=== PATIENT | female | born 1955 | race Caucasian/White ===

== ENCOUNTER 2022-03-03 09:34 | Outpatient (CLI) | payer BC, SELFPAY ==
[2022-03-03 14:16] LABS: Albumin* 4.6 g/dL (3.3-5.0); Chloride* 106 mmol/L (96-114); Sodium* 140 mmol/L (135-149)
[2022-03-03 14:17] LABS: Potassium* 4.3 mmol/L (3.6-5.1)
[2022-03-03 14:18] LABS: Cholesterol* 172 mg/dL (90-199)
[2022-03-03 14:19] LABS: Alanine Aminotransferase* 23 U/L (4-35); Alkaline Phosphatase* 91 U/L (40-150); Aspartate Amino Transferase* 27 U/L (12-35); Blood Urea Nitrogen* 26 mg/dL (7-30); Calcium* 9.5 mg/dL (8.4-10.6); Carbon Dioxide* 29 mmol/L (20-32); Creatinine* 0.9 mg/dL (0.5-1.5); Estimated Glomerular Filt Rate 71 ml/min; Triglycerides* 148 mg/dL (40-149)
[2022-03-03 14:20] LABS: HDL Cholesterol* 56 mg/dL (>=50); LDL Cholesterol Calculated 86 mg/dL (<100)
[2022-03-03 14:35] LABS: Glucose* 99 mg/dL (60-115)
== END 2022-03-03 09:35 | disposition home or self-care (01) ==
PROVIDERS: PCP Physician Assistant Medical; Visit Provider Physician Assistant Medical
DX: Z01.419 Encounter for gynecological examination (general) (routine) without abnormal findings (principal); E78.5 Hyperlipidemia, unspecified; I10 Essential (primary) hypertension
CPT/HCPCS: 80053; 80061

== ENCOUNTER 2022-07-08 12:43 | Outpatient (CLI) | payer MEDICARE, SELFPAY ==
--- NOTE | 2022-07-08 13:00 | CRLHL7_ITS ---
For Patients: As a result of the Century Cures Act, medical imaging exams and procedure reports are released immediately into your electronic medical record. You may view this report before your referring provider. If you have questions, please contact your health care provider. BILATERAL SCREENING MAMMOGRAM WITH COMPUTER-AIDED DETECTION AND TOMOSYNTHESIS TECHNIQUE: CC and MLO views were obtained. These mammographic images have been obtained using full-field digital technique. These mammographic images were interpreted with the benefit of computer-aided detection. Breast Tomosynthesis was used in this interpretation. COMPARISON FILM: 11/14/20, 09/17/19, 03/06/18. FINDINGS: There are scattered areas of fibroglandular density IMPRESSION: There is no radiographic evidence for malignancy. ASSESSMENT: BI-RADS Category 1: Negative RECOMMENDATION: Routine screening mammogram in 1 year. A lay language report of this examination will be provided to the patient. Jeremy Andrade M.D. Diagnostic Radiologist [email or web address] ISABELLA/Dictated by: Jeremy Andrade MD @ 07/09/2022 8:39:00 AM (Electronically Signed)
--- NOTE | 2022-07-08 13:30 | CRLHL7_ITS ---
For Patients: As a result of the Century Cures Act, medical imaging exams and procedure reports are released immediately into your electronic medical record. You may view this report before your referring provider. If you have questions, please contact your health care provider. DXA BONE MINERAL DENSITY STUDY Reason for exam: Bone density loss. Current height (in): 67. Weight (lb): 218. Menopause age: 42. Ethnicity: White. 1. Have you had a previous hip or vertebral fracture? No. 2. Have you had any fractures during your adult life which did not result from significant trauma (e.g., auto accident)? No. 3. Did either of your parents have a hip fracture? No. 4. Do you smoke? No. 5. Have you ever taken Glucocorticoids? No. 6. Do you have rheumatoid arthritis? No. 7. Do you have secondary osteoporosis? No. 8. Do you drink 3 or more alcoholic drinks per day? No. 9. Are you being treated for osteoporosis? No. 10. Have you ever taken any of the following medications: Actonel, Evista, Fosamax, Miacalcin, Reclast, Boniva, Forteo, HRT (i.e., estrogen/hormone therapy), Protelos, Prolia, Vitamin D, Calcium, other ??? please specify. ANSWER: No. 11. Do you have any of the following medical conditions: Anorexia or bulimia, asthma or emphysema, end stage renal disease, hyperparathyroidism, any seizure disorders, cancer, inflammatory bowel diseases, hysterectomy, other ??? please specify. ANSWER: No. 12. What was your maximum height (inches)? 68. 13. Do you perform weight bearing exercise regularly? No. 14. Do you regularly consume dairy products? Yes. 15. Do you drink caffeinated beverages? Yes. If female: 16. At what age did your period start? 18. 17. Are you premenopausal? No. 18. How many full-term pregnancies have you had? 2. 19. Have you ever missed your period for more than 6 months in a row (not including or menopause)? No. TECHNIQUE: Bone mineral density study was performed using the [place]. FINDINGS: The results of the study expressed as bone mineral density (BMD) are as follows: Lumbar spine L1 to L43: BMD: 1.165 g/cm2. T-score: 1.3. Z-score: 3.1 Neck Left: BMD: 0.900 g/cm2. T-score: 0.5. Z-score: 2.0 Right: BMD: 0.941 g/cm2. T-score: 0.8. Z-score: 2.4 Total Left: BMD: 1.024 g/cm2. T-score: 0.7. Z-score: 1.9 Right: BMD: 1.105 g/cm2. T-score: 1.3. Z-score: 2.6 IMPRESSION: Normal bone density. Jeremy Andrade M.D. Diagnostic Radiologist [email or web address] DSM/rocío jjayy/Dictated by: Jeremy Andrade MD @ 07/09/2022 12:19:00 PM (Electronically Signed)
== END 2022-07-08 12:44 | disposition home or self-care (01) ==
PROVIDERS: PCP Physician Assistant Medical; Visit Provider Physician Assistant Medical
DX: Z12.31 Encounter for screening mammogram for malignant neoplasm of breast (principal); Z13.820 Encounter for screening for osteoporosis
CPT/HCPCS: 77063; 77067; 77080

== ENCOUNTER 2023-03-17 10:10 | Outpatient (CLI) | payer MEDICARE, SELFPAY | END 2023-03-17 10:11 | disposition home or self-care (01) | LOC: NFLDREF 03-18 12:28 | PROVIDERS: PCP Physician Assistant Medical; Referring Provider Physician Assistant Medical; Visit Provider Physician Assistant Medical | DX: Z00.00 Encounter for general adult medical examination without abnormal findings (principal); E78.5 Hyperlipidemia, unspecified; I10 Essential (primary) hypertension; M25.562 Pain in left knee; R73.03 Prediabetes | CPT/HCPCS: 80053; 80061 ==

== ENCOUNTER 2023-05-24 13:30 | Outpatient (RCR) | payer MEDICARE, SELFPAY ==
--- NOTE | 2023-03-22 15:53 | PT.OPE ---
[facility] PT [facility] Outpatient Eval Start: 03/21/23 16:45 Freq: Status: Active Protocol: Document 03/22/23 14:23 LSL (Rec: 03/22/23 15:48 LSL [id number]) E-signed By Jazzy Conklin PT Physical Therapy Outpatient Evaluation Insurance Information Insurance Name Medicare B,Blue [employer] Medical Diagnosis L knee pain Treating Diagnosis pain, impaired ROM Referring MD Johnson Subjective Subjective Pt. reports sporadic feeling like her knee will give out and the next step it will be fine. Additionally she is experiencing a more constant ache in her inner L thigh that makes it difficult to fall asleep. If I get up to go to the bathroom it can be hard to fall back asleep. Pt. is a side sleeper and adding a pillow between her legs has not helped. Pt. has a couple of trips coming up in the near future and wants to make sure she doesn't have any problems while visiting different countries. Unable to identify anything to help or that is a trigger. HTN treated with medication. Pt's goal is to be able to walk a couple miles and do water aerobics. Pain Comments 05/14 Date of Last Physician Visit 03/17/23 Current Work Status Retired Precautions Weight Bearing Status Full Weight Bearing Therapy Limitations/Systems Review Not Limited Objective Range of Motion AROM Lumbar flexion WNL with slight knee bend, RLF 75%, LLF 50%, extension 50%, R rotation WNL, L rotation 30% Knee L 0/17/116 R 0/10/129 PROM - limited R hip extension and abduction causes increased lateral hip and medial thigh pain Strength B knees 5/5 Hip - L glut 3+/5 with limited hip extension, all others 5/5 B Swelling MEASUREMENTS L R joint line 41 cm 43.5 cm Palpation tenderness around pes anserine and all the way up adductor bundle, lateral joint line and ITB tender Balance & Gait B SLB 14-15 seconds Other/Pertinent Objective Special - negative McMurrays Functional Test Performed & Score Functional - squat shifts to R , B lunge fair + Assessment Assessment/Impression Pt. is a 68 year old female who presents to PT with a report of L adductor pain and very intermittent knee instability. She is lacking a significant amount of R knee extension and a moderate amount of L knee extension, additionally she has lost L knee flexion range as well. Her strength is good except for L gluts. Her knee instability may be due to this lack of ROM and tightness along the adductors pulling at the pes anserine. She will benefit from treatment initially focused on restoring her hip and knee ROM and progressing to strengthening so she feels comfortable getting off the floor. Primary Functional Limitations getting off the floor, walking , sleeping Plan of Care Rehabilitation Potential Good Physical Therapy Goals SHORT TERM GOALS: (2-3 weeks) 1. Pt. to able to fall asleep without leg pain. 2. Pt. able to walk with 3 or less instances per week of knee feeling like it may give out. [facility]CI GOALS: (4-8 weeks) 1. Pt. able [place] walk on the beach with pain less than 2/10 . 2. Pt. able to get up off the ground with minimal assistance from UE. Coordination/Communication With Referral Source Treatment Plan/Direct Interventions Manual Therapy,Neuromuscular Re-ed,Self-Care/Home Management,Therapeutic Activities,Therapeutic Exercises Frequency/Duration 1x/week 3 weeks then potentially again when she returns from vacation for a total of 10 sessions Patient Will Be Discharged From Therapy Completion of LTG(s),Skills Plateau,Independent w/HEP, Independently Progressing Evaluation Billing Untimed Code Treatment Minutes 35 Complexity Low Certification Information Initial Certification Date 03/22/23 Ending Certification Date 06/17/23 Provider Signature Shows Agreement With POC & Medical Necessity Physician Signature & Date Requested Please Sign/Date Here Physician Comment/Change : Physician NPI Number #
== END 2023-09-13 13:48 | disposition home or self-care (01) ==
PROVIDERS: PCP Physician Assistant Medical; Visit Provider Physician Assistant Medical
DX: M25.562 Pain in left knee (principal); Z51.89 Encounter for other specified aftercare
CPT/HCPCS: 97110; 97140; 97161

== ENCOUNTER 2023-11-01 12:40 | Outpatient (CLI) | payer MEDICARE, SELFPAY ==
--- NOTE | 2023-11-01 13:20 | CRLHL7_ITS ---
For Patients: As a result of the Century Cures Act, medical imaging exams and procedure reports are released immediately into your electronic medical record. You may view this report before your referring provider. If you have questions, please contact your health care provider. BILATERAL SCREENING MAMMOGRAM WITH COMPUTER-AIDED DETECTION AND TOMOSYNTHESIS TECHNIQUE: CC and MLO views were obtained. These mammographic images have been obtained using full-field digital technique. These mammographic images were interpreted with the benefit of computer-aided detection. Breast Tomosynthesis was used in this interpretation. COMPARISON FILM: 07/08/22, 11/14/20, 09/17/19. FINDINGS: There are scattered areas of fibroglandular density. IMPRESSION: There is no radiographic evidence for malignancy. ASSESSMENT: BI-RADS Category 1: Negative RECOMMENDATION: Routine screening mammogram in 1 year. A lay language report of this examination will be provided to the patient. Jeremy Andrade M.D. Diagnostic Radiologist [email or web address] SP/Dictated by: Jeremy Andrade MD @ 11/03/2023 9:56:00 AM (Electronically Signed)
== END 2023-11-01 12:41 | disposition home or self-care (01) ==
LOC: MAMMO 12:41
PROVIDERS: PCP Physician Assistant Medical; Visit Provider Physician Assistant Medical
DX: Z12.31 Encounter for screening mammogram for malignant neoplasm of breast (principal)
CPT/HCPCS: 77063; 77067

== ENCOUNTER 2024-06-05 08:32 | Outpatient (CLI) | payer MEDICARE, SELFPAY ==
--- NOTE | 2024-06-12 13:30 | W.PM.SLEEP ---
Sleep Study Details Details Interpreting Provider: Verenice Date of Sleep Study: 06/05/24 Sleep Study Details: STUDY TYPE:? Home unattended ? BMI:? 35.5 ORDERING PROVIDER:Mj Caldera INDICATION:? Concern about sleep apnea ? SLEEP SUMMARY:? 529 minutes monitored RESPIRATORY SUMMARY:? AHI 17.8 per rule 1A, 10.4 per CMS guidelines Low oxygen 82 9.6% of study oxygen less than 90% Snoring 97% PERIODIC LIMB MOVEMENTS OF SLEEP:? Not recorded CARDIAC:? Range 45-100, mean 53.3 beats per minute IMPRESSION:? Mild obstructive sleep apnea per CMS guideline, moderate apnea per rule 1A with significant desaturations nearly 10% of the study oxygen was less than 90%. RECOMMENDATION: AutoSet CPAP pressure 4-17. Dental appliance is also a potential treatment option.
== END 2024-06-05 08:33 | disposition home or self-care (01) ==
PROVIDERS: PCP Physician Assistant Medical; Visit Provider Otolaryngology
DX: G47.33 Obstructive sleep apnea (adult) (pediatric) (principal)
CPT/HCPCS: 95806

== ENCOUNTER 2024-06-07 09:18 | Outpatient (CLI) | payer MEDICARE, SELFPAY | END 2024-06-07 09:19 | disposition home or self-care (01) | LOC: NFLDREF 06-08 10:27 | PROVIDERS: PCP Physician Assistant Medical; Visit Provider Physician Assistant Medical | DX: I10 Essential (primary) hypertension (principal); E78.5 Hyperlipidemia, unspecified; E66.9 Obesity, unspecified; G25.81 Restless legs syndrome; R73.01 Impaired fasting glucose; R00.1 Bradycardia, unspecified | CPT/HCPCS: 80053; 80061; 82728 ==

== ENCOUNTER 2024-07-02 09:27 | Outpatient (CLI) | payer MEDICARE, SELFPAY ==
[2024-07-02 13:41] VITALS: BMI 34.7
== END 2024-07-02 09:28 | disposition home or self-care (01) ==
LOC: NUTRITION 09:28
PROVIDERS: PCP Physician Assistant Medical; Visit Provider Dietitian, Registered
DX: E66.9 Obesity, unspecified (principal); Z68.32 Body mass index [BMI] 32.0-32.9, adult; Z71.3 Dietary counseling and surveillance
CPT/HCPCS: G0463

== ENCOUNTER 2024-07-11 10:26 | Outpatient (CLI) | payer MEDICARE, SELFPAY ==
[2024-07-11 08:46] VITALS: BMI 34.6
== END 2024-07-11 10:27 | disposition home or self-care (01) ==
LOC: NUTRITION 10:26
PROVIDERS: PCP Physician Assistant Medical; Visit Provider Dietitian, Registered
DX: E66.9 Obesity, unspecified (principal); Z68.32 Body mass index [BMI] 32.0-32.9, adult; Z71.3 Dietary counseling and surveillance
CPT/HCPCS: G0463

== ENCOUNTER 2024-07-23 07:44 | Outpatient (CLI) | payer MEDICARE, SELFPAY ==
[2024-07-23 08:28] VITALS: BMI 34.4
== END 2024-07-23 07:45 | disposition home or self-care (01) ==
LOC: NUTRITION 07:44
PROVIDERS: PCP Physician Assistant Medical; Visit Provider Dietitian, Registered
DX: E66.9 Obesity, unspecified (principal); Z68.34 Body mass index [BMI] 34.0-34.9, adult; Z71.3 Dietary counseling and surveillance
CPT/HCPCS: G0463

== ENCOUNTER 2024-08-01 09:07 | Outpatient (CLI) | payer MEDICARE, SELFPAY ==
[2024-08-01 13:33] VITALS: BMI 34.5
== END 2024-08-01 09:08 | disposition home or self-care (01) ==
LOC: NUTRITION 09:08
PROVIDERS: PCP Physician Assistant Medical; Visit Provider Dietitian, Registered
DX: E66.9 Obesity, unspecified (principal); Z68.34 Body mass index [BMI] 34.0-34.9, adult; Z71.3 Dietary counseling and surveillance
CPT/HCPCS: G0463

== ENCOUNTER 2024-08-15 12:55 | Outpatient (CLI) | payer MEDICARE, SELFPAY ==
[2024-08-15 08:35] VITALS: BMI 34.1
== END 2024-08-15 12:56 | disposition home or self-care (01) ==
LOC: NUTRITION 12:56
PROVIDERS: PCP Physician Assistant Medical; Visit Provider Dietitian, Registered
DX: Z13.820 Encounter for screening for osteoporosis (principal); E66.9 Obesity, unspecified; Z68.34 Body mass index [BMI] 34.0-34.9, adult; Z71.3 Dietary counseling and surveillance
CPT/HCPCS: 77080; G0463

== ENCOUNTER 2024-08-29 12:55 | Outpatient (CLI) | payer MEDICARE, SELFPAY ==
[2024-08-29 08:41] VITALS: BMI 33.5
== END 2024-08-29 12:56 | disposition home or self-care (01) ==
LOC: NUTRITION 12:55
PROVIDERS: PCP Physician Assistant Medical; Visit Provider Dietitian, Registered
DX: E66.9 Obesity, unspecified (principal); Z68.34 Body mass index [BMI] 34.0-34.9, adult; Z71.3 Dietary counseling and surveillance
CPT/HCPCS: G0463

== ENCOUNTER 2024-09-12 08:40 | Outpatient (CLI) | payer MEDICARE, SELFPAY ==
[2024-09-12 08:36] VITALS: BMI 33.7
== END 2024-09-12 08:41 | disposition home or self-care (01) ==
LOC: NUTRITION 08:41
PROVIDERS: PCP Physician Assistant Medical; Visit Provider Dietitian, Registered
DX: E66.9 Obesity, unspecified (principal); Z68.34 Body mass index [BMI] 34.0-34.9, adult; Z71.3 Dietary counseling and surveillance
CPT/HCPCS: G0463

== ENCOUNTER 2024-09-26 10:11 | Outpatient (CLI) | payer MEDICARE, SELFPAY ==
[2024-09-26 09:03] VITALS: BMI 33.0
--- OUTSIDE RECORDS SUMMARY | 2024-09-27 00:24 | XMS_ITS | Data Portability ---
Author Organization [facility] Yazmin OROURKE Address [address] [place] [address] Assessment Encounter Date Assessment Date Assessment LastModified by Organization Details LastModified Time 03/19/2024 03/19/2024 Patient is a 69-year-old female with a history of HTN, hyperlipidemi a, obesity, and prediabetes, presenting for an initial visit and evaluation of insomnia, left knee pain, and a facial lesion. Total time spent on patient care for this patient: __57__ minutes Not available 03/19/2024 13:45:40 Plan of Treatment Reminders Order Date Submit Date Provider Last Modified By Organization Details Last Modified Time Details Appointments None record ed. Lab None record ed. Referral None record ed. Procedures home sleep testin g (PROC) 2023 024 kevin [facility], [address] [place], [address], 5 16:17:49 Surgeries None record ed. Imaging None record ed. Medication Orders mirtaz apine 7.5 mg tablet 2023 024 [employer] #[id number], [address] [place], [place], [id number], 4 14:01:39 atorva statin 20 mg tablet 2023 024 [employer] #[id number], [address] [place], [place], [id number], 14:01:36 atorva statin 10 mg tablet 2023 024 [facility] [employer] [facility] #[id number], [address] [place], [place], [id number], 14:01:40 Patient TargetsNo targets recorded. Patient Instructions Encounter Date Encounter Id Patient Instructions Last Modified By Organization Details Last Modified Time 03/19/2024 [id number] We discussed you r overall health and management as a new patient at our clinic: - We will manage all aspects of your care, including medications, lab work, and coordination with specialists. - If you need imaging or a referral to a specialist, we will arrange it and discuss the results together. - You are encouraged to see us as your primary care clinic, and we will work together to make informed decisions about your health. We discussed your knee pain and history of cortisone injections: - We will obtain your medical records from [facility] to review your previous treatments and determine the best course of action. We discussed your upcoming dermatology appointment in May for a skin concern on your cheek: - Continue with this appointment as scheduled. We discussed your sleep issues and waking up multiple times during the night: - We will order a sleep study to rule out or confirm sleep apnea, given your family history of the condition. - We will try a low dose of Mirtazapine to see if it helps with your sleep issues. Please let us know if you experience any side effects, such as nausea or constipation. We discussed your blood pressure and the cough you experience when lying down: - We will monitor your blood pressure and consider alternative medications if needed. We discussed your family history of diabetes and the need to monitor your blood sugar levels: - We will schedule a fasting blood test to check your A1c, lipids, electrolytes, kidney function, thyroid, CBC, and vitamin B12 and D levels during your annual wellness visit. We discussed your weight concerns and the need to address diet and exercise: - We will provide information on medications for weight loss, but we encourage you to focus on diet and exercise first. We discussed your urinary urgency and the possibility of pelvic floor exercises: - We will consider a referral for pelvic floor exercises if the urgency becomes more frequent or problematic. We will also consider medication as warranted. We discussed your concerns about bone health and the need for a DEXA scan: - We will schedule a DEXA scan to assess your bone density. We discussed your medication refills: - We will send refills for Atorvastatin to your pharmacy at [facility]. Please let us know if you have any questions or concerns about your care plan. Not available 03/19/2024 13:55:08 General Reminders: First Call your [facility] at [phone] for any urgent health related concerns that might arise after hours. If you are experiencing symptoms of true medical emergency like a heart attack, stroke or other, call 911 right away. If you are ever in the ER or get admitted to the hospital, please notify our clinic of your visit or admission, at the above phone number, within 24-48 hours of the event whenever possible. This will help us ensure we have your hospital records accessed in a timely fashion for us to see you after discharge. If you have never provided us with your POLST, [facility] Care Durable Power of Aircraft Life Support Fitter, or other such medical forms, please bring it to your visit, to ensure it is a part of your medical record. If you would like to review or complete the forms, here are the links: [email or web address] Please remember to bring all your medication bottles to your medical visits in a secure bag. Not available 03/19/2024 13:55:24 Reason for Referral None Reported. Problems Name Problem SNOMED Code Status Onset Date Resolution Date Notes Provider Name and Address Organization Details Recorded Time Arthritis of left knee 89149523864 24888 Active 2023 Have had cortisone injection s twice but none in the last 2-3 years. Alisa Evans DNP [address] [place], [address] , [place] - [facility] [place] [facility] 4 10:42:49 Essential hypertens ion 37781031 Active 2023 Alisa Evans DNP [address] [place], [address] , [place] [facility] - [facility] [place] [facility] 4 10:43:08 Prediabet es 403352855 Active 2023 Alisa Evans DNP [address] [place], [address] , [facility] 4 10:43:14 Severe obesity 36815665557 104 Active 2023 Alisa Evans DNP [address] [place], [address] , [facility] 4 10:43:45 Lesion of skin of face 11883384616 6 Active 2023 Has dermatolo gy appointme nt scheduled for April 2024 Alisa Evans DNP [address] [place], [address] , [facility] 4 10:44:35 Primary insomnia 7136008 Active 2023 Tried Trazodone (dropped her heart rate) and another sleep medicatio n. Alisa Evans DNP [address] [place], [address] , [facility] 4 10:54:11 Hyperlipi demia 67311947 Active 2023 Taking Atorvasta tin 20 mg daily Alisa Evans DNP [address] [place], [address] , [facility] 4 10:46:08 Insomnia 749087675 Active 2023 Alisa Evans DNP [address] [place], [address] , [facility] 4 14:01:20 Problem Notes None recorded. Medical Equipment None Reported. Allergies Allergen ID Allergen Name Allergen Category Reaction Reaction Severity Criticality Documentation Date Start Date Code Code System Note Provider Name and Address Organization Details Recorded Time 67812 trazodone medicatio n bradycard ia Not available Not available 03/19/2024 26226 RxNorm Alisa Evans , [facility] [address], [place], [address], [facility] 4 10:54:33 Medications Name Sig Start Date Stop Date Status Note LastModified by Organization Details LastModified Time atorvastatin 20 mg tablet Take 1 tablet every day by oral route as directed for 90 days. 2023 active Taking for HLD Not Available Not Available Not Available atorvastatin 10 mg tablet Take 1 tablet every day by oral route as directed for 90 days. 2023 active Not Available Not Available Not Avai lable lisinopril 20 mg tablet Take 20 mg every day by oral route. active Taking for HTN Not Available Not Available Not Available hydrochlorot hiazide 25 mg tablet Take 25 mg every day by oral route. active Taking for HTN Not Available Not Available Not Available mirtazapine 7.5 mg tablet Take 1 tablet(s) every day by oral route at bedtime for 30 days. active Not Available Not Available No t Available Calcium Citrate + D 1 tablet once a day active Not Available Not Available No t Available Vitals Date Recorded Body height Body mass index (BMI) Body weight Body temperature Heart rate Oxygen saturation Oxygen saturation in Arterial blood by Pulse oximetry Systolic blood pressure Diastolic blood pressure Provider Name and Address Organization Details Last Updated DateTime 170.18 cm 34.4 kg/m2 43577.8 8 g 97.8 [degF] 55 /min 94 % 94 % 134 mm[Hg] 72 mm[Hg] Krystin Esteves [facility] 10:18:07 Social History Question Answer Notes LastModified by Organization Details LastModified Time Tobacco Smoking Status Never Smoker Krystin Esteves null, [facility] [place] [facility] 03/19/2024 10:05:09 Do You Have An Advance Directive? Yes Patient To Bring A Copy For Chart. Information not available 03/19/2024 Is Your Home Air Conditioned? Yes Information not available 03/19/2024 Do You Wear A Helmet When Biking? Yes Information not available 03/19/2024 Is Blood Transfusion Acceptable In An Emergency? Yes Information not available 03/19/2024 What Is Your Level Of Caffeine Consumption? Occasional [employer] Drink. 1 Diet Pepsi At Lunch Time. Information not available 03/19/2024 What Is Your Code Status? DNR Information not available 03/19/2024 Do You Have A Directive To Physicians? Yes Information not available 03/19/2024 What Is The Highest Grade Or Level Of School You Have Completed Or The Highest Degree You Have Received? PG30602-4 Information not available 03/19/2024 How Many Times Per Week Do You Exercise? 1-2 Times Per Week Information not available 03/19/2024 Are There Any Guns Present In Your Home? No Information not available 03/19/2024 Where Do You Live? SingleLevelHouse Information not available 03/19/2024 Do You Experience Leakage With Activity, Coughing, Or Sneezing? No Information not available 03/19/2024 Do You Experience Urinary Urgency (sudden Need To Urinate)? Yes Information not available 03/19/2024 Do You Experience Any Pain Or Discomfort During [place]? No Information not available 03/19/2024 Do You Experiencing Vaginal Dryness Or Irritation? No Information not available 03/19/2024 Have You Noticed Any Vaginal Bulging Or Prolapse? No Information not available 03/19/2024 Do You Have Difficulty Emptying Your Bladder Completely? Yes Information not available 03/19/2024 Have You Ever Used Hormone Replacement Therapy? No Information not available 03/19/2024 Have You Ever Had Any Sexually Transmitted Infections? No Information not available 03/19/2024 How Long Have You Lived There? 4 Years Information not available 03/19/2024 Do You Have A Medical Power Of Aircraft Life Support Fitter? Yes Information not available 03/19/2024 Do You Have Moisture Problems In Your Home? No Information not available 03/19/2024 Do You Have An Out Of Hospital DNR? No Information not available 03/19/2024 Do You Have A Patient Advocate? No Information not available 03/19/2024 Have You Ever Been Counseled For Unhealthy Alcohol Use? No Information not available 03/19/2024 Do You Use Protection During Sex? No Information not available 03/19/2024 Do You Use Protection Against STDs? No Information not available 03/19/2024 What Is Your Relationship Status? Information not available 03/19/2024 Do You Use Your Seat Belt Or Car Seat Routinely? Yes Information not available 03/19/2024 Are You Sexually Active? Yes Information not available 03/19/2024 Do You Have Smoke And Carbon Monoxide Detectors In Your Home? Yes Information not available 03/19/2024 Are You Passively Exposed To Smoke? No Information not available 03/19/2024 Has Tobacco Cessation Counseling Been Provided? No Information not available 03/19/2024 Do You Have Difficulty Walking Or Climbing Stairs? No Information not available 03/19/2024 Do You Have Any Dietary Restrictions? No Information not available 03/19/2024 How Many Days In The Past Year Have You Consumed 4 Or More Drinks? 0 Information not available 03/19/2024 How Many Days In The Past Year Have You Consumed 5 Or More Drinks? 0 Information not available 03/19/2024 Sex: Female Functional Status Question Answer Note LastModified by Organizat ion Details LastModified Time How many times per week do you consume alcohol? Less than 1 time per week Information not available 03/19/2024 Do you use any illicit or recreational drugs? No Information not available 03/19/2024 What is your level of alcohol consumption? Occasional Information not available 03/19/2024 Do you have transportation difficulties? No Information not available 03/19/2024 Are you able to walk? YESWOREST Information not available 03/19/2024 Do you have difficulty doing errands alone? No Information not available 03/19/2024 Are you able to care for yourself? Yes Information n ot available 03/19/2024 Do you have difficulty dressing or bathing? No Information not available 03/19/2024 What is your exercise level? Occasional Information not available 03/19/2024 Do you or have you ever used any nicotine-free cigarettes, vape, or chewing tobacco? No Information not available 03/19/2024 Mental Status Question Answer Note LastModified by Organization D etails LastModified Time Do you have difficulty concentrating, remembering or making decisions? Yes Information no t available 03/19/2024 Family History Relationship Description Onset Age of this Age Resolved Age Notes LastModified by Organization Details LastModified Time Mother Diabetes mellitus Not available 03/04 10:57:38 Sister Diabetes mellitus 1 Not available 03/04 10:57:38 Sister Diabetes mellitus 3 Not available 03/04 10:57:38 Sister Primary malignant neoplasm of common bile duct 3. as a result . Not available 03/19/2024 10:59:30 Sister Primary malignant neoplasm of common bile duct 5 Not available 03/04 10:59:30 Sister Myocardial infarction Not available 11:00:43 Sister Obstructive sleep apnea syndrome 1 Not available 03/04 11:14:54 Sister Obstructive sleep apnea syndrome 4 Not available 03/04 11:14:54 Sister Obstructive sleep apnea syndrome 5 Not available 03/04 11:14:54 Father Heart disease Not available 03/04 10:57:56 Father Parkinson's disease Not available 03/04 10:59:50 Brother Atrial fibrillation 2 Not available 1 05/20/2023 11:00:59 Brother Obstructive sleep apnea syndrome 2 Not available 03/04 11:14:54 Medical History No medical history recorded. Gynecological HistoryNo gynecological history recorded. Obstetrics History GPAL:G 0 P 0 0 0 0 Immunizations Vaccine Type Date Status Note Provider Nam e and Address Organization Details Recorded Time SARS-COV-2 (COVID-19) vaccine, UNSPECIFIED 03/11/202 1 completed Krystin Troje null, [place] [facility] [place] [facility] 03/19/2024 10:28:56 SARS-COV-2 (COVID-19) vaccine, UNSPECIFIED 1 completed Krystin Troje [place] [facility] 03/19/2024 10:29:05 SARS-COV-2 (COVID-19) vaccine, UNSPECIFIED 1 completed Krystin Troje [place] [facility] 03/19/2024 10:29:11 SARS-COV-2 (COVID-19) vaccine, UNSPECIFIED 2 completed Krystin Troje [place] [facility] 03/19/2024 10:29:20 SARS-COV-2 (COVID-19) vaccine, UNSPECIFIED 3 completed Krystin Troje [place] [facility] 03/19/2024 10:29:29 SARS-COV-2 (COVID-19) vaccine, UNSPECIFIED 4 completed Krystin Troje [place] [facility] 03/19/2024 10:29:38 influenza, unspecified formulation 2 completed Krystin Troje [place] [facility] 03/19/2024 10:29:57 influenza, unspecified formulation 5 completed Krystin Tro[place] [facility] 03/19/2024 10:30:06 influenza, unspecified formulation 9 completed Krystin Troje [place] [facility] 03/19/2024 10:30:34 influenza, unspecified formulation 0 completed Krystin Troje [place] [facility] 03/19/2024 10:30:40 influenza, unspecified formulation 2 completed Krystin Troje [place] [facility] 03/19/2024 10:30:48 influenza, unspecified formulation 3 completed Krystin Troje null, [facility] [place] [facility] 03/19/2024 10:30:59 influenza, unspecified formulation 4 completed Krystin ambrocio, [facility] 03/19/2024 10:31:09 Pneumococcal conjugate PCV20, polysaccharide [id number] conjugate, adjuvant, PF 2 completed Krystin ambrocio, [facility] [place] [facility] 03/19/2024 10:31:29 pneumococcal polysaccharide PPV23 8 completed Krystin ambrocio, [facility] [place] [facility] 03/19/2024 10:32:18 Past Encounters Encounter ID Performer Location Encounter Start Date Encounter Closed Date Diagnosis/Indication Diagnosis SNOMED-CT Code Diagnosis ICD10 Code Diagnosis Note [id number] TRICIA Fung [address] [place] [address] 03/19/2024 09:25:44 03/19/2024 14:05:18 Postmenopausal state 05959791 Z78.0 - No specific treatment or monitoring required at this time.- No recent DEXA scan and patient does not remember getting this done.- Referral for DEXA sent. Osteoarthr itis of left knee joint 9136437760 34907 M17.12 - History of two cortisone injections , none in the last 2-3 years.- Discussed potential benefits and risks of further cortisone injections .- Advised to consider physical therapy for knee strengthen ing and pain management . Obesity 023219746 E66.9 - Discussed importance of diet and exercise in weight management .- Provided nutritiona l and dietary recommenda tions.- Encouraged to monitor dietary intake, particular ly sugar and carbohydra flash.- Discussed potential for future pharmacolo gical interventi on if lifestyle modificati ons are insufficie nt. Essential hypertension 34113738 I10 - Stable condition. - Currently on hydrochlor othiazide 25 mg and lisinopril 20 mg.- Discussed potential side effect of lisinopril causing cough.- Offered alternativ e medication (losartan) if cough becomes bothersome .- Advised to monitor blood pressure at home and keep record. Prediabetes 060320409 R7 3.03 - No recent A1c available; will check A1c during next visit.- Advised to monitor for symptoms of diabetes and maintain a healthy diet.- Educated on the importance of foot care and monitoring for any cuts or wounds. Hyperlipidemia 61557520 E78.5 - Currently on atorvastat in.- Refill ordered for atorvastat in to ensure adequate supply during upcoming travel.- Will check lipid panel during next visit. Insomnia 633577333 G47.0 0 - History of trialing trazodone with side effect of low heart rate.- Discussed use of melatonin and its effects.- Prescribed mirtazapin e 7.5 mg for insomnia, starting at a low dose.- Educated on potential side effects of mirtazapin e including nausea and constipati on.- Discussed potential benefit of sleep study to rule out sleep apnea. Patient en counter status [id number] Z13.820 - No recent DEXA scan available. - Scheduled DEXA scan to assess bone density.- Advised to continue calcium citrate with vitamin D. Health Concerns Section Related Observation LastModified by Organization Detai ls LastModified Time None Recorded Concern Status LastModified by Organization Details LastModified Time None Recorded Advance Directives Directive Y: Patient to bring a copy f or chart. Payers Insurance Date Sequence Insurance Name Policy Number Policy Watson Covered Member ID Watson Member ID Guarantor Name 04/28/2024 MED[place]: [employer] Millie Dixon [id number] Millie Dixon 04/28/2024 1 [place]MED[place]AC[place]) [id number] Millie Dixon [id number] Millie Dixon Notes Date Note Type Note Provider Name and Address Organization Details Recorded Time 4 text/html Patient is a 69-year-old female with a history of HTN, hyperlipidemia, obesity, and prediabetes, presenting for an initial visit and evaluation of insomnia, left knee pain, and a facial lesion. Insomnia:- Difficulty achieving deep sleep; wakes at 00:30, 02:30, and 04:30.- Able to return to sleep after reading.- Tried trazodone previously, but discontinued due to bradycardia.- Tried melatonin, which helps with sleep onset but causes morning grogginess.- Reports increased insomnia during periods of stress or anxiety.- Family history of FELY; three sisters and one brother use CPAP.- reports occasional snoring.- Denies dyspnea. Left Knee Pain:- Chronic left knee pain due to [id number] condition.- Received two cortisone injections, with the last one 2-3 years ago.- No recent injections. Facial Lesion:- Noticed a lesion on the cheek; no changes observed.- Dermatology appointment scheduled in May for evaluation. HTN:- Managed with lisinopril 20 mg and hydrochlorothiazide 25 mg.- Reports a mild cough when lying down, suspected to be related to lisinopril.- Inconsistent with home blood pressure monitoring; notes higher readings in the morning.- Denies significant GERD symptoms, only situational with overeating. Hyperlipidemia:- Managed with atorvastatin.- Last lipid panel was approximately one year ago. Obesity:- Struggles with weight loss and maintaining motivation.- Has tried Weight Watchers in the past.- Desires a fresh start with more support and check-ins.- Exercises 1-2 times per week.- No current dietary restrictions; consumes sugar regularly.- Drinks one Diet Pepsi daily and a natural energy drink from [employer].- Alcohol consumption about once a week or less, mainly during summer.- Denies smoking history. Prediabetes:- Family history of diabetes in mother and two sisters.- Reports occasional tingling in toes, more pronounced when taking Tylenol PM. Family History:- Mother and two sisters have diabetes.- Father had heart disease and Parkinson's disease.- One sister of bile duct cancer; another sister currently has it.- Younger sister had a TIA with no lingering effects.- Brother has atrial fibrillation. Surgical History:- Denies any surgeries or implants. Preventive Care:- Mammogram in February.- Cologuard test in February was negative.- No known history of DEXA scan. Meds: meds reviewed Alisa Evans, [facility] [address], [place], [address], [place] [facility] 03/19/2024 14:03:50 OBGyn Episode No OBEpisode recorded.
--- OUTSIDE RECORDS SUMMARY | 2024-09-27 00:24 | XMS_ITS | Clinical Summary ---
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 Active lisinopriL (PRINIVIL; ZESTRIL) 10 mg tablet Take 10 mg by mouth once daily. Active lisinopriL (PRINIVIL; ZESTRIL) 20 mg tablet Take 20 mg by mouth once daily. Active atorvastatin (LIPITOR) 10 mg tablet Take 10 mg by mouth once daily. Active Active Problems Problem Noted Date Diagnosed Date Esophageal reflux Unspecified constipation Mixed hyperlipidemia Unspecified essential hypertension Encounters Date Type Department Care Team Description 08/28/2024 Orders Only [facility] [address] [place] [address] Cally Araujo 1 scan: (1-Ord) ZIO from Last 3 Months Immunizations Immunization Administration Dates Next Due MMR 12/23/1994 Tdap 08/04/2005 Family History Medical History Relation Name Comments Heart Disease Brother 1 recent stent p lacement per dictation dated [id number] Other Brother 1 hypercholestere edmund Other Brother 2 emphysema Diabetes Mother type 2 Diabetes Sister three sisters w ith type 2 Relation Name Status Comments Brother 1 Brother 2 Mother Sister Social History Tobacco Use Types Packs/Day Years Used Date Smoking Tobacco: Never Alcohol Use Standard Drinks/Week Comments Not Asked 0 (1 standard drink = 0.6 oz pur e alcohol) Social Connections Answer Date Recorded Do you often feel lonely or isolated from those around you? 0 05/29/2024 Financial Resource Strain Answer Date R ecorded Difficulty of Paying Living Expenses 3 05/29/2024 Difficulty of Paying Living Expenses Not on file 05/29/2024 Food Insecurity Answer Date Recorded Do you worry your food will run out before you are able to buy more? 1 05/29/2024 Transportation Needs Answer Date Record ed Does lack of transportation keep you from medica l appointments? 1 05/29/2024 Does lack of transportation keep you from work, meetings or getting things that you need? 1 05/29/2024 Housing Stability Answer Date Recorded What is your housing situation today? 1 05/29/2024 Utilities Answer Date Recorded Do you have trouble paying f or utilities (for example, heat, electricity, water, phone)? 1 05/29/2024 Comments Unknown Sex and Gender Information Value Date Recorded Sex Assigned at Not on file Legal Sex Female 5:25 AM [employer] Gender Identity Not on file Sexual Orientation Not on file Obstetrics History Last Filed Vital Signs Vital Sign Reading Time Taken Comments Blood Pressure 118/59 05/29/2024 9:16 AM [employer] Pulse 69 05/29/2024 9:16 AM [employer] Temperature 36 C (96.8 F) 05/29/2024 9:16 AM [employer] Respiratory Rate 18 05/29/2024 9:16 AM [employer] Oxygen Saturation 93% 05/29/2024 9:16 AM [employer] Inhaled Oxygen Concentration - - Weight - - Height - - Body Mass Index - - Plan of Treatment Health Maintenance Due Date Last Done Comments Depression screening for age 12+ 1969 BMI (ht and wt on same day) for age 18+ 1975 Hepatitis C screening for age 18-79 1975 Colonoscopy through age 75 2002 Mammogram for age 45-75 2002 Pneumococcal series for age 50+ (1 of 1 - PCV) 2007 Zoster (shingles) series for age 50+ (1 of 2) 2007 Lipids for age 45-75 07/29/2010 07/29/2005, 07/30/19 06 Tetanus booster 08/05/2015 08/04/2005 DEXA/DXA scan for age 65+ 2022 Medicare Wellness for age 65+ 2022 COVID-19 vaccine series ( season) 2024 02/09/2024, 03/01/2023, 01/28/2022, Additional history exists Influenza Vaccine (Season Ended) 2024 RSV vaccine for adults or (1 - 1-dose 75+ series) 02/16/2032 Tdap Completed 08/04/2005 Hepatitis B series for 19+ Aged Out N o longer eligible based on patient's age to complete this topic Procedures Procedure Name Priority Date/Time Associated Diagnosis Comments EXTENDED HOLTER Routine 08/06/2024 Bradycardia, unspecified LIPID PANEL Timed 07/29/2005 7:17 AM CDT from Last 3 Months or Most Recently Relevant to Health Maintenance Results * EXTENDED HOLTER (08/06/2024) Amber Johnson PA-C CARDI[facility] SERVICES ORD Final R esult * (ABNORMAL) LIPID PANEL (07/29/2005 7:17 AM CDT) CHOLESTEROL,TOTAL 237(H) 110 - 199 mg/dL [facility] TRIGLYCERIDES 138 <150 mg/dL [facility] HDL CHOLESTEROL 46 >40 mg/dL [facility] CHOL/HDL RATIO 5.15(H) <4.51 [facility] LDL CHOLESTEROL 163(H) <131 mg/dL [facility] PATIENT STATUS Fasting [facility] 07/29/2005 7:17 AM CDT 07/29/2005 7:17 AM CDT us Kaya Ramírez NP CHEMISTRY F inal Result [facility] [address] [place] [address] from Last 3 Months or Most Recently Relevant to Health Maintenance Insurance [employer] MR Care Teams Border Measurer And Cutter Relationship Specialty Start Date End Date Pcp, No . PCP - General 03/10/18
== END 2024-09-26 10:12 | disposition home or self-care (01) ==
LOC: NUTRITION 10:12
PROVIDERS: PCP Physician Assistant Medical; Visit Provider Dietitian, Registered
DX: E66.9 Obesity, unspecified (principal); Z68.34 Body mass index [BMI] 34.0-34.9, adult; Z71.3 Dietary counseling and surveillance
CPT/HCPCS: G0463

== ENCOUNTER 2024-10-17 06:05 | Outpatient (CLI) | payer MEDICARE, SELFPAY ==
[2024-10-17 07:12] VITALS: BMI 32.9
== END 2024-10-17 06:06 | disposition home or self-care (01) ==
LOC: NUTRITION 06:05
PROVIDERS: PCP Physician Assistant Medical; Visit Provider Dietitian, Registered
DX: E66.9 Obesity, unspecified (principal); Z68.34 Body mass index [BMI] 34.0-34.9, adult; Z71.3 Dietary counseling and surveillance
CPT/HCPCS: G0463

== ENCOUNTER 2024-10-31 07:47 | Outpatient (CLI) | payer MEDICARE, SELFPAY ==
[2024-10-31 07:35] VITALS: BMI 33.0
== END 2024-10-31 07:48 | disposition home or self-care (01) ==
LOC: NUTRITION 07:47
PROVIDERS: PCP Physician Assistant Medical; Visit Provider Dietitian, Registered
DX: E66.9 Obesity, unspecified (principal); Z68.34 Body mass index [BMI] 34.0-34.9, adult; Z71.3 Dietary counseling and surveillance
CPT/HCPCS: G0463

== ENCOUNTER 2024-11-19 05:56 | Outpatient (CLI) | payer MEDICARE, SELFPAY ==
[2024-11-19 07:26] VITALS: BMI 32.9
== END 2024-11-19 05:57 | disposition home or self-care (01) ==
LOC: NUTRITION 05:59
PROVIDERS: PCP Physician Assistant Medical; Visit Provider Dietitian, Registered
DX: E66.9 Obesity, unspecified (principal); Z68.34 Body mass index [BMI] 34.0-34.9, adult; Z71.3 Dietary counseling and surveillance
CPT/HCPCS: G0463

== ENCOUNTER 2024-12-12 09:00 | Outpatient (CLI) | payer MEDICARE, SELFPAY ==
[2024-12-12 07:33] VITALS: BMI 33.2
== END 2024-12-12 09:01 | disposition home or self-care (01) ==
LOC: NUTRITION 01-25 11:10
PROVIDERS: PCP Physician Assistant Medical; Visit Provider Dietitian, Registered
DX: E66.9 Obesity, unspecified (principal); Z68.34 Body mass index [BMI] 34.0-34.9, adult; Z71.3 Dietary counseling and surveillance
CPT/HCPCS: G0463

== ENCOUNTER 2024-12-17 14:36 | Outpatient (CLI) | payer MEDICARE, SELFPAY ==
--- NOTE | 2024-12-17 14:40 | CRLHL7_ITS ---
For Patients: As a result of the Century Cures Act, medical imaging exams and procedure reports are released immediately into your electronic medical record. You may view this report before your referring provider. If you have questions, please contact your health care provider. INDICATION: BILATERAL SCREENING MAMMOGRAM, ASYMPTOMATIC 69 Y/O FEMALE COMPARISON: 11/01/2023, 07/08/2022, 12/02/2020 TECHNIQUE: Digital mammogram in CC and MLO projections including computer-aided detection (CAD) and tomosynthesis. BREAST COMPOSITION: There are scattered areas of fibroglandular density. FINDINGS: No suspicious findings. ASSESSMENT: BI-RADS 1 Negative RECOMMENDATION: Annual screening mammogram. A lay language report of this examination will be provided to the patient. Dictated by: Jeremy Andrade MD @ 12/18/2024 09:30:44 (Electronically Signed)
== END 2024-12-17 14:37 | disposition home or self-care (01) ==
LOC: MAMMO 14:37
PROVIDERS: PCP Physician Assistant Medical; Visit Provider Physician Assistant Medical
DX: Z12.31 Encounter for screening mammogram for malignant neoplasm of breast (principal)
CPT/HCPCS: 77063; 77067

== ENCOUNTER 2024-12-26 05:12 | Outpatient (CLI) | payer MEDICARE, SELFPAY ==
[2024-12-26 08:32] VITALS: BMI 33.3
== END 2024-12-26 05:13 | disposition home or self-care (01) ==
LOC: NUTRITION 05:13
PROVIDERS: PCP Physician Assistant Medical; Visit Provider Dietitian, Registered
DX: E66.9 Obesity, unspecified (principal); Z68.34 Body mass index [BMI] 34.0-34.9, adult; Z71.3 Dietary counseling and surveillance
CPT/HCPCS: G0463